=== PATIENT | female | born 1985 | race Caucasian/White ===

== ENCOUNTER 2018-09-17 09:21 | Day surgery (SDC) | payer OTHER, MEDICAID ==
--- NOTE | 2018-09-16 20:26 | PDGENHP ---
History and Physical - Chief Complaint LEFT HIP - History of Present Illness 1. Hx of L hip dislocation without XR confirmation 2. ~~Bilateral TARA, cam type 3. ~~s/p L hip scope Jun 2015, Dr. Mac 4. 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 Jolie's~left~hip pain started July 2013, with~marked~recalled trauma or injury~ (dislocation while in a training exercise when she fell into a oil well - 2 hrs until reduced once in traction/manipulated~-- no XR done at that time), and with~no~previous complaints.~Karindoes not have~a known history of hip dysplasia. After the dislocation event, she had~continued L hip pain and underwent~a L hip scope Jun 2015 with labral repair, cam resection (Dr. Mac). She did well until November 2015 when she got and then had recurrent L hip pain and has had consistent symptoms since. Presentation today is of~anterior~left~hip pain deep inside. ~The hip~does~wake her~at night and~does~click and catch on~her. Sitting~can be uncomfortable~for her, she generally tilts to the R to avoid sitting on her L buttocks.~Karindoes ~report suffering from lower back pain episodes for the last year.~ Karinhas~participated in physical therapy x 1 year~and~has~tried other conservative measures including dry needling, chiropractic treatments, massage therapy, steroid injections x2 (last done 2 months ago, 1 yr interval between the two, both gave her 1 day of 60% pain relief).~She~has not~received sufficient symptomatic improvement. Karinhas~utilized medication for pain management, including meloxicam, gabapentin, marijuana.~Karinhas used meloxicam since October 2017 and uses marijuana daily. Karindenies issues with the right~hip, would not seek care for the minimal symptoms on that side.~~ Karinunderstands that~natasha~has a hip and pelvis problem which should be researched and wishes to get a better understanding of~her~hip status, followed by an establishment of a treatment strategy, hoping~krzysztofwould be able to get back to~her~well being active life. History: Past medical history:~~ Patient~~has a past medical history of Asthma. Relevant familial history:~None which is relevant~ Past surgical history:~ No. Surgery Anesthesia Year Outcome 1 L hip scope General 2016 No complications 2 Pilonidal cyst excision General 2011 No complications Karindenies problematic issues with general anesthesia in the past. I have reviewed, verified and agree with the past medical, surgical, family and social history. Current Medications:~currently has no medications in their medication list. ALLERGIES:~has no allergies on file. Objective: Physical Examination: Karinis 5~feet~5~inches tall and weighs~175~Lbs. Karinis AAO x3; she~is well- nourished, in NAD. Skin is warm and dry. ~Breathing is non-labored. ~CV with RRR by pulse. Abdomen is soft, NTND. Currently,~natasha~walks with a~normal~gait. Trendelenburg sign is~negative~and proprioception~is reduced,~left~sides. She~presents~with no~signs of joint laxity.~Beightons Score:~1 (palms to floor) She~is fit looking. ~~ Lower spine examination is~negative~for sciatic or femoral nerve irritation with positive~SLR &~femoral stretch tests L side. Range of motion of the spine is~normal~for flexion, extension, and rotations,~with~associated pain. Strength, Sensation and pulses are~abnormal - 75% decreased sensation in L 1st web space Ankles and knees exams are~normal~and~no~mal-alignment is evident.~ Natasha~has~right~0.25~cm short leg length discrepancy. Thigh circumference is~symmetric~with no evidence for muscle atrophy~on both~ sides. Hip ROM (degrees): FL ER At 90~hip FL IR At 90~hip FL AB AD EX IR Neutral hip ER Neutral hip R 105 50 15 45 5 0 35(pain) 45(pain) L 105-110 45 35 40(pain) 10 0 40(pain) 25(pain) Specific hip and pelvis tests: Impingement Test LEWIS Roll Add. Longus R + + Negative + L +++ +++ +++ ++ Glut. Med ITB Posterior Imp R Negative 5/5 strength Negative 5/5 strength Negative L +++ 4/5 strength Negative 5/5 strength +++~(anterior) Squeeze test measured~weak Bony Symphysis pubis is~painful~to touch (++)~while concentric activity of the rectus abdominis,~does~produce pain at its insertion. Ilio Psos specific tests are~positive for pain during cycling for~the left hip~ and remarkable for deep popping sound HF has~pain but good strength~the left hip. Lateral~capsule tenderness Bilaterally Greater trochanteric burse is~painful~on the left hip. Piriformis tests: FAIR is~negative,~with no~local signs of neuritis related to sciatic nerve. SIJs examination is~produces pain on~left side~with~normal~LEWIS in relation and local tenderness. Hamstrings tests are~positive~tendinopathy both hips. On a daily basis, the following~areas are significant contributors~Jolie's overall total pain: Imaging: Radiology studies which I~have personally reviewed, analyzed and measured are below: XR: AP of the hip and pelvis: Performed in a~good~technique Coccyx to pubic symphysis distance~2.4~cm. 5~degrees cephal [place]~Lines are preserved. Minimal~Pathological signs are seen in the Symphysis Pubis.~ Minimal~Pathological signs are seen at the Ischial~tuberosity. ~ Specific measurements show:~ 0 deg WB (5 deg corrected) NSA~ LCE Sourcil~Angle Sharp's angle Lat. Cam Lat. Pincer C.Over~sign Head~Coverage % ATDmm R 130 27~(27) 4 (4) 38(40) Neg Neg Neg 76% 18.2 L 128 23~(24) 6~(3) 42(37) Neg Neg 2:00 75% 21.7 Pos. wall sign ISS NAD ~~Dysplasia Comments R Negative + 10.1~mm Negative L + + 8.3~mm Negative Sclerosis Sup. Lat. OA Cysts Joint Space-WBZ Joint Space-Medial R Negative Negative Negative 3.7~mm 3.3~mm L Negative Negative Negative 4.3~mm 4.2~mm X Table lateral: Anterior cam lesion is~seen~on the right hip.~Previous cam resection contour on the left. Alpha Angle: ~ Right~58~degrees Left~45~degrees Impression and plan:~ Jolie~is a~33 y.o.~active female~suffering from~Left~hip pain with a hx of traumatic L hip dislocation, bilateral TARA s/p L hip scope/cam resection in 2016 , lumbar radiculopathy~causing significant disability to~her~and altering~her~ sport and life activities. Physical examination, imaging, and~her~story correspond with the diagnosis mentioned above. I explained that femoroacetabular impingement (TARA) arises due to a bony or soft tissue conflict between the femur (ball) and acetabulum (socket) caused by an abnormality in the shape of the hip joint. Over time, repetitive impingement can result in damage to the labrum and adjacent surface cartilage within the socket, ultimately giving rise to progressive osteoarthritis of the hip. I explained that although a labral tear can be a source of pain, it is rarely the root of the problem and typically occurs secondary to an underlying abnormality in the shape and mechanics of the hip joint. ~ I reviewed conservative treatment options for TARA including activity modification to avoid positions of impingement, physical therapy, non-steroidal anti-inflammatory medications, and various injections (corticosteroid and PRP) aimed at reducing inflammation in the hip joint or/and preventing dynamic impingement. PRP injections may promote healing and reduce symptoms in certain cases but it will not repair chronically damaged tissue. Although these measures may help to buy time and reduce current level of symptoms, they are not a definitive solution to the problem given the underlying abnormality in the shape of the hip joint. Patients who have failed conservative management and continue to experience symptoms are candidates for hip arthroscopy, a minimally invasive surgery that can definitively address the underlying problem. Hip arthroscopy typically includes treating the labrum with either repair or reconstruction of the torn labrum; as well as addressing the underlying abnormalities by restoring the normal shape to the hip joint. ~If the cartilage is damaged a Microfracture~ surgical procedure may also be necessary to help stimulate the growth of fibrocartilage. ~If a patient requires a labral reconstruction or a Microfracture, the initial rehabilitation from the surgery may take longer, but the custodial results are typically favorable. I reviewed the technical aspects of hip arthroscopy including risks, benefits, and expected course of recovery. Jolie understands that hip arthroscopy is a minimally invasive outpatient procedure carried out through small incisions on the outer aspect of the hip joint. During surgery, the labral tear will be identified and either repaired or reconstructed using bone anchors and suture material. Additionally, any excessive bone will be removed with a high-speed kylah to reshape the hip joint and restore normal anatomy. Risks include infection, bleeding, injury to nearby nerves or vessels, stiffness, persistent pain, instability, venous thromboembolic disease, and traction related complications including temporary foot numbness. Rarely, revision surgery may be required to address these problems. Overall recovery takes approximately 4 8 months depending on the extent of damage and degree of repair. In the event that the labral tissue quality is inadequate for successful repair and healing, Jolie understands that a labral reconstruction will be performed. This procedure entails placing a cadaver tissue graft within the hip joint and stabilizing it with bone anchors to build a new labrum. The overall recovery time for labral reconstruction is similar to that of labral repair, although the surgical procedure takes longer to perform. Jolie~will review the info presented. In order to obtain more detailed information regarding the alignment, orientation, and shape of the bony hip and pelvis I will order a CT scan to be performed. The results of the CT scan, including femoral torsion and acetabular version measured values and 3D images, will aid me in deciding on the best treatment strategy and surgical pre-planning. She stated her MRI scans should be sent over (unclear if this will be reports or images). We advised her that we will need to see the actual images and she~ will likely~need to obtain the discs to upload to our system~for~review. We will refer her to Dr. Godfrey for further evaluation of her lumbar spine given the physical exam findings. Jolie~is going to contact us after completing her~imaging studies and being evaluated by Dr. Godfrey. Karinis happy with this plan. I have also supplied~her~with handouts, outlining the expected surgical treatment and rehab involved. I wish~Jolie~all the best, ~~ Jolie Carter MD History Information - Allergies/Home Medication List Allergies/Adverse Reactions: No Known Allergies Allergy (Unverified 09/03/18 16:31) Home Medications: Acetaminophen [Tylenol 325mg (*)] 650 mg PO DAILY PRN 09/03/18 [Last Taken Unknown] Albuterol [Proventil Inhaler HFA (*)] 1 - 2 puffs IH Q4H PRN 09/03/18 [Last Taken Unknown] FLUoxetine [Prozac 20 MG (*)] 60 mg PO DAILY 09/03/18 [Last Taken Unknown] I have personally reviewed and updated: medical history - Social History Smoking Status: Current every day smoker Review of Systems Review of Systems: Physical Exam Physical Exam:
[2018-09-17] MEDS ORDERED: ACETAMINOPHEN 500 MG TAB PO ONE (09:44)
[2018-09-17] MEDS ORDERED: PREGABALIN 150 MG CAP PO ONE (09:44)
[2018-09-17] MEDS ORDERED: ceFAZolin 2 GM/DEXTROSE 100 ML IV ONE (09:44)
[2018-09-17] MEDS ORDERED: LIDOCAINE 1% 2 ML INJ ID PRN (09:45)
[2018-09-17] MEDS ORDERED: LR 1,000 ML IV ONE (09:45)
[2018-09-17] MEDS ORDERED: EPINEPHrine 30 MG/30 ML MDV (0.1 MG/0.1 ML) ONE (10:05)
[2018-09-17] MEDS ORDERED: BUPIVACAINE/EPI 0.25% 30 ML SDV ONE (10:05)
[2018-09-17] MEDS ORDERED: MIDAZOLAM 2 MG/2 ML VIAL IVP ONE (11:41)
[2018-09-17] MEDS ORDERED: ALBUTEROL 3 ML DEYVIAL IH PRN (11:42)
[2018-09-17] MEDS ORDERED: ONDANSETRON 4 MG/2 ML VIAL IVP PRN (11:42)
[2018-09-17] MEDS ORDERED: DEXAMETHASONE 4 MG/ML VIAL IVP PRN (11:42)
[2018-09-17] MEDS ORDERED: NALOXONE HCL 0.4 MG/ML INJ IVP PRN (11:42)
--- NOTE | 2018-09-17 11:43 | PDANEPAE ---
ANE History of Present Illness Left Hip Scope ANE Past Medical History - Cardiovascular History Hx Hypertension: No Hx Arrhythmias: No Hx Chest Pain: No Hx Coronary Artery / Peripheral Vascular Disease: No Hx CHF / Valvular Disease: No Hx Palpitations: No - Pulmonary History Hx COPD: No Hx Asthma/Reactive Airway Disease: Yes Hx Recent Upper Respiratory Infection: No Hx Oxygen in Use at Home: No Hx Sleep Apnea: No Sleep Apnea Screening Result - Last Documented: Negative Pulmonary History Comment: Asthma. - Neurologic History Hx Cerebrovascular Accident: No Hx Seizures: No Hx Dementia: No - Endocrine History Hx Diabetes: No - Renal History Hx Renal Disorders: No - Liver History Hx Hepatic Disorders: No - Neurological & Psychiatric Hx Hx Neurological and Psychiatric Disorders: Yes Neurological / Psychiatric History Comment: Depression. Anxiety - Cancer History Hx Cancer: No - Congenital Disorder History Hx Congenital Disorders: No - GI History Hx Gastrointestinal Disorders: No - Other Health History Other Health History: None. - Chronic Pain History Chronic Pain: Yes - Surgical History Prior Surgeries: [facility] teeth extraction 2006. Pyolonidal cyst removal 2012. L hip arthroscopy 2016 ANE Review of Systems Review of Systems: - Exercise capacity METS (RN): 4 METS ANE Patient History - Allergies Allergies/Adverse Reactions: No Known Allergies Allergy (Unverified 09/03/18 16:31) - Home Medications Home Medications: Acetaminophen [Tylenol 325mg (*)] 650 mg PO DAILY PRN 09/03/18 [Last Taken 09/10] Albuterol [Proventil Inhaler HFA (*)] 1 - 2 puffs IH Q4H PRN 09/03/18 [Last Taken 09/03/18] FLUoxetine [Prozac 20 MG (*)] 60 mg PO DAILY 09/03/18 [Last Taken 09/17/18 06:30 ] - NPO status NPO Since - Liquids (Date): 09/17/18 NPO Since - Liquids (Time): 06:30 NPO Since - Solids (Date): 09/16/18 NPO Since - Solids (Time): 18:00 - Smoking Hx Smoking Status: Current every day smoker - Family Anes Hx Family Hx Anesthesia Complications: None. ANE Labs/Vital Signs - Vital Signs Blood Pressure: 112/62 Heart Rate: 65 Respiratory Rate: 18 O2 Sat (%): 95 Height: 165.1 cm Weight: 73.028 kg ANE Physical Exam - Airway Neck exam: FROM Mallampati Score: Class 2 Mouth exam: normal dental/mouth exam - Pulmonary Pulmonary: clear to auscultation - Cardiovascular Cardiovascular: regular rate and rhythym - ASA Status ASA Status: II ANE Anesthesia Plan Anesthesia Plan: general endotracheal anesthesia
[2018-09-17] MEDS ORDERED: MIDAZOLAM 2 MG/2 ML VIAL ONE (11:46)
[2018-09-17] MEDS ORDERED: HYDROmorphONE/DILAUDID 2 MG/ML INJ ONE (11:51)
[2018-09-17] MEDS ORDERED: PROPOFOL 200 MG/20 ML VIAL ONE (11:52)
[2018-09-17] MEDS ORDERED: ROCURONIUM 50 MG/5 ML VIAL ONE (12:13)
[2018-09-17] MEDS ORDERED: ePHEDrine SULFATE 25 MG/5 ML SYR ONE (12:13)
[2018-09-17] MEDS ORDERED: DEXAMETHASONE 4 MG/ML VIAL ONE ×2 (12:36)
[2018-09-17] MEDS ORDERED: ONDANSETRON 4 MG/2 ML VIAL ONE ×2 (12:36→14:10)
--- NOTE | 2018-09-17 14:08 | POSTANESTH ---
Post Anesthetic Evaluation Cardiovascular Status: Normal, Stable Respiratory Status: Normal, Stable Level of Consciousness/Mental Status: Can Participate in Eval, Mildly Sleepy, Arousable Pain Control: Adequate, Prn Tx Ordered Nausea/Vomiting Control: Adequate, Prn Tx Ordered Complications Possibly Related to Anesthesia: None Noted
[2018-09-17] MEDS ORDERED: fentaNYL 100 MCG/2 ML INJ ONE ×2 (14:10→15:10)
[2018-09-17] MEDS ORDERED: HYDROmorphONE/DILAUDID 1 MG/ML INJ ONE (14:10)
[2018-09-17] MEDS: fentaNYL 100 MCG/2 ML INJ IVP PRN ×3 (14:13→15:14)
[2018-09-17] MEDS: HYDROmorphONE/DILAUDID 1 MG/ML INJ IVP PRN ×2 (14:16→14:55)
[2018-09-17] MEDS ORDERED: oxyCODONE IR 5 MG TAB ONE ×2 (15:10→15:52)
[2018-09-17] MEDS: oxyCODONE IR 5 MG TAB PO PRN ×2 (15:11→15:53)
[2018-09-17 16:26] VITALS: BP 102/57
== END 2018-09-17 17:32 | disposition home or self-care (01) ==
LOC: FSGY 09:21
PROVIDERS: ATTEND Orthopaedic Surgery Sports Medicine
DX: M24.152 Other articular cartilage disorders, left hip (principal); M76.892 Other specified enthesopathies of left lower limb, excluding foot; M94.252 Chondromalacia, left hip; Q65.9 Congenital deformity of hip, unspecified; J45.909 Unspecified asthma, uncomplicated
CPT/HCPCS: C1713; J0171; J0690; J1100; J1170; J2250; J2405; J2704; J3010

== ENCOUNTER 2018-09-24 05:47 | Inpatient (IN) | payer OTHER, MEDICAID ==
--- NOTE | 2018-09-23 20:40 | PDGENHP ---
History and Physical - Chief Complaint LEFT HIP PAIN - History of Present Illness 1. Hx of L hip dislocation without XR confirmation 2. ~~Bilateral TARA, cam type 3. ~~s/p L hip scope Jun 2015, Dr. Mac 4. 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 Jolie's~left~hip pain started July 2013, with~marked~recalled trauma or injury~ (dislocation while in a training exercise when she fell into a oil well - 2 hrs until reduced once in traction/manipulated~-- no XR done at that time), and with~no~previous complaints.~Karindoes not have~a known history of hip dysplasia. After the dislocation event, she had~continued L hip pain and underwent~a L hip scope Jun 2015 with labral repair, cam resection (Dr. Mac). She did well until November 2015 when she got and then had recurrent L hip pain and has had consistent symptoms since. Presentation today is of~anterior~left~hip pain deep inside. ~The hip~does~wake her~at night and~does~click and catch on~her. Sitting~can be uncomfortable~for her, she generally tilts to the R to avoid sitting on her L buttocks.~Karindoes ~report suffering from lower back pain episodes for the last year.~ Karinhas~participated in physical therapy x 1 year~and~has~tried other conservative measures including dry needling, chiropractic treatments, massage therapy, steroid injections x2 (last done 2 months ago, 1 yr interval between the two, both gave her 1 day of 60% pain relief).~She~has not~received sufficient symptomatic improvement. Karinhas~utilized medication for pain management, including meloxicam, gabapentin, marijuana.~Karinhas used meloxicam since October 2017 and uses marijuana daily. Karindenies issues with the right~hip, would not seek care for the minimal symptoms on that side.~~ Karinunderstands that~natasha~has a hip and pelvis problem which should be researched and wishes to get a better understanding of~her~hip status, followed by an establishment of a treatment strategy, hoping~krzysztofwould be able to get back to~her~well being active life. History: Past medical history:~~ Patient~~has a past medical history of Asthma. Relevant familial history:~None which is relevant~ Past surgical history:~ No. Surgery Anesthesia Year Outcome 1 L hip scope General 2016 No complications 2 Pilonidal cyst excision General 2011 No complications Karindenies problematic issues with general anesthesia in the past. I have reviewed, verified and agree with the past medical, surgical, family and social history. Current Medications:~currently has no medications in their medication list. ALLERGIES:~has no allergies on file. Objective: Physical Examination: Karinis 5~feet~5~inches tall and weighs~175~Lbs. Karinis AAO x3; she~is well- nourished, in NAD. Skin is warm and dry. ~Breathing is non-labored. ~CV with RRR by pulse. Abdomen is soft, NTND. Currently,~natasha~walks with a~normal~gait. Trendelenburg sign is~negative~and proprioception~is reduced,~left~sides. She~presents~with no~signs of joint laxity.~Beightons Score:~1 (palms to floor) She~is fit looking. ~~ Lower spine examination is~negative~for sciatic or femoral nerve irritation with positive~SLR &~femoral stretch tests L side. Range of motion of the spine is~normal~for flexion, extension, and rotations,~with~associated pain. Strength, Sensation and pulses are~abnormal - 75% decreased sensation in L 1st web space Ankles and knees exams are~normal~and~no~mal-alignment is evident.~ Natasha~has~right~0.25~cm short leg length discrepancy. Thigh circumference is~symmetric~with no evidence for muscle atrophy~on both~ sides. Hip ROM (degrees): FL ER At 90~hip FL IR At 90~hip FL AB AD EX IR Neutral hip ER Neutral hip R 105 50 15 45 5 0 35(pain) 45(pain) L 105-110 45 35 40(pain) 10 0 40(pain) 25(pain) Specific hip and pelvis tests: Impingement Test LEWIS Roll Add. Longus R + + Negative + L +++ +++ +++ ++ Glut. Med ITB Posterior Imp R Negative 5/5 strength Negative 5/5 strength Negative L +++ 4/5 strength Negative 5/5 strength +++~(anterior) Squeeze test measured~weak Bony Symphysis pubis is~painful~to touch (++)~while concentric activity of the rectus abdominis,~does~produce pain at its insertion. Ilio Psos specific tests are~positive for pain during cycling for~the left hip~ and remarkable for deep popping sound HF has~pain but good strength~the left hip. Lateral~capsule tenderness Bilaterally Greater trochanteric burse is~painful~on the left hip. Piriformis tests: FAIR is~negative,~with no~local signs of neuritis related to sciatic nerve. SIJs examination is~produces pain on~left side~with~normal~LEWIS in relation and local tenderness. Hamstrings tests are~positive~tendinopathy both hips. On a daily basis, the following~areas are significant contributors~Jolie's overall total pain: Imaging: Radiology studies which I~have personally reviewed, analyzed and measured are below: XR: AP of the hip and pelvis: Performed in a~good~technique Coccyx to pubic symphysis distance~2.4~cm. 5~degrees cephal [place]~Lines are preserved. Minimal~Pathological signs are seen in the Symphysis Pubis.~ Minimal~Pathological signs are seen at the Ischial~tuberosity. ~ Specific measurements show:~ 0 deg WB (5 deg corrected) NSA~ LCE Sourcil~Angle Sharp's angle Lat. Cam Lat. Pincer C.Over~sign Head~Coverage % ATDmm R 130 27~(27) 4 (4) 38(40) Neg Neg Neg 76% 18.2 L 128 23~(24) 6~(3) 42(37) Neg Neg 2:00 75% 21.7 Pos. wall sign ISS NAD ~~Dysplasia Comments R Negative + 10.1~mm Negative L + + 8.3~mm Negative Sclerosis Sup. Lat. OA Cysts Joint Space-WBZ Joint Space-Medial R Negative Negative Negative 3.7~mm 3.3~mm L Negative Negative Negative 4.3~mm 4.2~mm X Table lateral: Anterior cam lesion is~seen~on the right hip.~Previous cam resection contour on the left. Alpha Angle: ~ Right~58~degrees Left~45~degrees Impression and plan:~ Jolie~is a~32 y.o.~active female~suffering from~Left~hip pain with a hx of traumatic L hip dislocation, bilateral TARA s/p L hip scope/cam resection in 2016 , lumbar radiculopathy~causing significant disability to~her~and altering~her~ sport and life activities. Physical examination, imaging, and~her~story correspond with the diagnosis mentioned above. I explained that femoroacetabular impingement (TARA) arises due to a bony or soft tissue conflict between the femur (ball) and acetabulum (socket) caused by an abnormality in the shape of the hip joint. Over time, repetitive impingement can result in damage to the labrum and adjacent surface cartilage within the socket, ultimately giving rise to progressive osteoarthritis of the hip. I explained that although a labral tear can be a source of pain, it is rarely the root of the problem and typically occurs secondary to an underlying abnormality in the shape and mechanics of the hip joint. ~ I reviewed conservative treatment options for TARA including activity modification to avoid positions of impingement, physical therapy, non-steroidal anti-inflammatory medications, and various injections (corticosteroid and PRP) aimed at reducing inflammation in the hip joint or/and preventing dynamic impingement. PRP injections may promote healing and reduce symptoms in certain cases but it will not repair chronically damaged tissue. Although these measures may help to buy time and reduce current level of symptoms, they are not a definitive solution to the problem given the underlying abnormality in the shape of the hip joint. Patients who have failed conservative management and continue to experience symptoms are candidates for hip arthroscopy, a minimally invasive surgery that can definitively address the underlying problem. Hip arthroscopy typically includes treating the labrum with either repair or reconstruction of the torn labrum; as well as addressing the underlying abnormalities by restoring the normal shape to the hip joint. ~If the cartilage is damaged a Microfracture~ surgical procedure may also be necessary to help stimulate the growth of fibrocartilage. ~If a patient requires a labral reconstruction or a Microfracture, the initial rehabilitation from the surgery may take longer, but the computer terminal operator results are typically favorable. I reviewed the technical aspects of hip arthroscopy including risks, benefits, and expected course of recovery. Jolie understands that hip arthroscopy is a minimally invasive outpatient procedure carried out through small incisions on the outer aspect of the hip joint. During surgery, the labral tear will be identified and either repaired or reconstructed using bone anchors and suture material. Additionally, any excessive bone will be removed with a high-speed kylah to reshape the hip joint and restore normal anatomy. Risks include infection, bleeding, injury to nearby nerves or vessels, stiffness, persistent pain, instability, venous thromboembolic disease, and traction related complications including temporary foot numbness. Rarely, revision surgery may be required to address these problems. Overall recovery takes approximately 4 8 months depending on the extent of damage and degree of repair. In the event that the labral tissue quality is inadequate for successful repair and healing, Jolie understands that a labral reconstruction will be performed. This procedure entails placing a cadaver tissue graft within the hip joint and stabilizing it with bone anchors to build a new labrum. The overall recovery time for labral reconstruction is similar to that of labral repair, although the surgical procedure takes longer to perform. Jolie~will review the info presented. In order to obtain more detailed information regarding the alignment, orientation, and shape of the bony hip and pelvis I will order a CT scan to be performed. The results of the CT scan, including femoral torsion and acetabular version measured values and 3D images, will aid me in deciding on the best treatment strategy and surgical pre-planning. She stated her MRI scans should be sent over (unclear if this will be reports or images). We advised her that we will need to see the actual images and she~ will likely~need to obtain the discs to upload to our system~for~review. We will refer her to Dr. Godfrey for further evaluation of her lumbar spine given the physical exam findings. Jolie~is going to contact us after completing her~imaging studies and being evaluated by Dr. Godfrey. Krainis happy with this plan. I have also supplied~her~with handouts, outlining the expected surgical treatment and rehab involved. I wish~Jolie~all the best, ~~ Jolie Carter MD History Information - Allergies/Home Medication List Allergies/Adverse Reactions: No Known Allergies Allergy (Unverified 09/19/18 14:21) Home Medications: Acetaminophen [Tylenol 325mg (*)] 09/03/18 [Last Taken 09/10/18] Albuterol [Proventil Inhaler HFA (*)] 09/03/18 [Last Taken 09/03/18] FLUoxetine [Prozac 20 MG (*)] 09/03/18 [Last Taken 09/17/18 06:30] Diazepam 09/19/18 [Last Taken Unknown] Naproxen 09/19/18 [Last Taken Unknown] Oxycodone-Acetaminophen 5-325 09/19/18 [Last Taken Unknown] Zofran 09/19/18 [Last Taken Unknown] I have personally reviewed and updated: medical history - Social History Smoking Status: Former smoker Review of Systems Review of Systems: Physical Exam Physical Exam:
[2018-09-24] MEDS ORDERED: ceFAZolin 2 GM/DEXTROSE 100 ML IV ONE (06:07)
[2018-09-24] MEDS ORDERED: SCOPOLAMINE HYDROBROMIDE 1 MG/3 DAYS PATCH TD ONE (06:07)
[2018-09-24] MEDS ORDERED: TRANEXAMIC ACID 1,000 MG in NS 100 ML IV ONE (06:07)
[2018-09-24] MEDS ORDERED: ACETAMINOPHEN 500 MG TAB PO ONE (06:07)
[2018-09-24] MEDS ORDERED: PREGABALIN 150 MG CAP PO ONE (06:07)
[2018-09-24] MEDS ORDERED: LR 1,000 ML IV ONE (06:11)
[2018-09-24] MEDS ORDERED: CITRATE DEXTROSE SOLN 500 ML BAG ONE (06:43)
[2018-09-24] MEDS ORDERED: MIDAZOLAM 2 MG/2 ML VIAL IVP ONE (07:00)
--- NOTE | 2018-09-24 07:00 | PDANEPAE ---
ANE History of Present Illness dysplasia s/f ELA ANE Past Medical History - Cardiovascular History Hx Hypertension: No Hx Arrhythmias: No Hx Chest Pain: No Hx Coronary Artery / Peripheral Vascular Disease: No Hx CHF / Valvular Disease: No Hx Palpitations: No - Pulmonary History Hx COPD: No Hx Asthma/Reactive Airway Disease: Yes Hx Recent Upper Respiratory Infection: No Hx Oxygen in Use at Home: No Hx Sleep Apnea: No Sleep Apnea Screening Result - Last Documented: Negative Pulmonary History Comment: cold triggers asthma - Neurologic History Hx Cerebrovascular Accident: No Hx Seizures: No Hx Dementia: No - Endocrine History Hx Diabetes: No - Renal History Hx Renal Disorders: No - Liver History Hx Hepatic Disorders: No - Neurological & Psychiatric Hx Hx Neurological and Psychiatric Disorders: Yes Neurological / Psychiatric History Comment: depression,anxiety - Cancer History Hx Cancer: No - Congenital Disorder History Hx Congenital Disorders: Yes Congenital History Comment: hip dysplasia - GI History Hx Gastrointestinal Disorders: No - Other Health History Other Health History: none - Chronic Pain History Chronic Pain: No - Surgical History Prior Surgeries: left hip scope with femoroplasty and labral repair ANE Review of Systems Review of Systems: - Exercise capacity METS (RN): 4 METS ANE Patient History - Allergies Allergies/Adverse Reactions: No Known Allergies Allergy (Unverified 09/19/18 14:21) - Home Medications Home medications: home medication list seen and reviewed Home Medications: Acetaminophen [Tylenol 325mg (*)] 09/03/18 [Last Taken 09/19/18] Albuterol [Proventil Inhaler HFA (*)] 09/03/18 [Last Taken 09/03/18] FLUoxetine [Prozac 20 MG (*)] 09/03/18 [Last Taken 09/24/18] Diazepam 09/19/18 [Last Taken 09/21/18] Naproxen 09/19/18 [Last Taken 09/21/18] Oxycodone-Acetaminophen 5-325 09/19/18 [Last Taken 09/21/18] Zofran 09/19/18 [Last Taken 09/20/18] - NPO status NPO Status: no food or drink >8 hours NPO Since - Liquids (Date): 09/24/18 NPO Since - Liquids (Time): 05:00 NPO Since - Solids (Date): 09/23/18 NPO Since - Solids (Time): 17:00 - Anes Hx Anes Hx: no prior problems - Smoking Hx Smoking Status: Former smoker - Alcohol Use Alcohol Use: None - Family Anes Hx Family Anes Hx: none Family Hx Anesthesia Complications: none ANE Labs/Vital Signs - Labs - CBC WBC: pending - Vital Signs Blood Pressure: 110/68 Heart Rate: 88 Respiratory Rate: 20 O2 Sat (%): 96 Height: 165.1 cm Weight: 72.575 kg ANE Physical Exam - Airway Neck exam: FROM Mallampati Score: Class 2 Mouth exam: normal dental/mouth exam - Pulmonary Pulmonary: no respiratory distress - Cardiovascular Cardiovascular: regular rate and rhythym - ASA Status ASA Status: II ANE Anesthesia Plan Anesthesia Plan: general endotracheal anesthesia, spinal (MSO4)
[2018-09-24] MEDS ORDERED: BUPIVACAINE 0.5% 30 ML SDV ONE (07:22)
[2018-09-24] MEDS ORDERED: DEXAMETHASONE 4 MG/ML VIAL ONE ×2 (07:26)
[2018-09-24] MEDS ORDERED: morphINE PF 5 MG/10 ML INJ ONE (07:26)
[2018-09-24] MEDS ORDERED: fentaNYL 100 MCG/2 ML INJ ONE ×3 (07:26→14:14)
[2018-09-24] MEDS ORDERED: ROCURONIUM 50 MG/5 ML VIAL ONE (07:26)
[2018-09-24] MEDS ORDERED: PROPOFOL/EMULSION 500 MG/50 ML BOTTLE IV ONE ×2 (07:26→09:22)
[2018-09-24] MEDS ORDERED: LIDOCAINE 2% 100 MG/5 ML SYR ONE (07:27)
[2018-09-24] MEDS ORDERED: ONDANSETRON 4 MG/2 ML VIAL ONE (07:27)
[2018-09-24] MEDS ORDERED: LIDOCAINE HCL 160 MG/4 ML LTA KIT TP ONE (07:27)
[2018-09-24] MEDS ORDERED: ePHEDrine SULFATE 25 MG/5 ML SYR ONE (07:52)
[2018-09-24] MEDS ORDERED: ceFAZolin 1 GM VIAL ONE ×2 (08:20)
[2018-09-24] MEDS ORDERED: PHENYLEPHRINE HCL 100 MCG/ML SYR ONE ×3 (08:26→10:46)
[2018-09-24] MEDS ORDERED: TRANEXAMIC ACID 1,000 MG/10 ML VIAL ONE (10:27)
[2018-09-24] MEDS ORDERED: VASOPRESSIN 20 UNIT/ML VIAL ONE (11:26)
[2018-09-24] MEDS ORDERED: PROPOFOL 200 MG/20 ML VIAL ONE (11:43)
[2018-09-24] MEDS: fentaNYL 100 MCG/2 ML INJ IVP PRN ×4 (12:49→15:03)
[2018-09-24] MEDS ORDERED: ONDANSETRON 4 MG/2 ML VIAL IVP PRN ×3 (12:58→13:01)
[2018-09-24] MEDS ORDERED: ACETAMINOPHEN 325 MG TAB PO PRN (12:58)
[2018-09-24] MEDS ORDERED: MAGNESIUM HYDROXIDE 30 ML UDCUP PO PRN (12:58)
[2018-09-24] MEDS ORDERED: LACTULOSE 20 GM/30 ML UDCUP PO PRN (12:58)
[2018-09-24] MEDS ORDERED: ONDANSETRON DISINTEGRATING 4 MG TAB PO PRN (12:58)
[2018-09-24] MEDS ORDERED: BISACODYL 10 MG SUPP PR PRN (12:58)
[2018-09-24] MEDS ORDERED: oxyCODONE IR 5 MG TAB PO PRN (13:01)
[2018-09-24] MEDS ORDERED: MEPERIDINE 25 MG/0.5 ML AMP IVP PRN (13:01)
[2018-09-24] MEDS ORDERED: ALBUTEROL 3 ML DEYVIAL IH PRN (13:01)
[2018-09-24] MEDS ORDERED: PHENYLEPHRINE HCL 100 MCG/ML SYR IVP PRN (13:01)
[2018-09-24] MEDS ORDERED: LR 500 ML IV PRN (13:01)
[2018-09-24] MEDS ORDERED: METOCLOPRAMIDE 10 MG/2 ML VIAL IVP PRN ×2 (13:01)
[2018-09-24] MEDS ORDERED: PROMETHAZINE HCL 25 MG/ML INJ IVP PRN (13:01)
[2018-09-24] MEDS ORDERED: NALOXONE HCL 0.4 MG/ML INJ IVP PRN ×3 (13:01→13:02)
[2018-09-24] MEDS ORDERED: DEXAMETHASONE 4 MG/ML VIAL IVP PRN (13:01)
[2018-09-24] MEDS ORDERED: LABETALOL HCL 5 MG/ML 20 ML MDV IVP PRN (13:01)
[2018-09-24] MEDS ORDERED: HYDROCODONE/APAP 5/325 TAB PO PRN (13:01)
[2018-09-24] MEDS ORDERED: oxyCODONE IR 15 MG TAB PO PRN (13:03)
[2018-09-24] MEDS: oxyCODONE IR 5 MG TAB PO SCH ×3 (15:25→21:55)
[2018-09-24] MEDS: NAPROXEN SODIUM 220 MG TAB PO SCH ×2 (15:26→21:55)
[2018-09-24] MEDS: HYDROmorphONE/DILAUDID 6 MG/30 ML PCA IV PRN (15:31)
[2018-09-24] MEDS: NS 1,000 ML IV SCH (15:41)
[2018-09-24] MEDS: diphenhydrAMINE 25 MG CAP PO PRN ×2 (15:47→21:57)
--- NOTE | 2018-09-24 15:54 | PDMN ---
Medical Necessity Medical necessity: MCG GRG musculoskeletal sgy OP: Poppy MAHMOOD
[2018-09-24] MEDS ORDERED: ALBUTEROL 60 PUFFS/8 GM MDI IH PRN (17:35)
[2018-09-24] MEDS: SENNOSIDES/DOCUSATE SODIUM TAB PO SCH (21:56)
--- NOTE | 2018-09-24 23:51 | SUROPNOTE ---
FRANCISCO Operative Report - Surgery Surgery was performed at [facility] on~09/24/18~ Diagnosis:~Left 1. Hip Acetabular Dysplasia ~ Operation: Left~Antonette Acetabular Osteotomy (ELA) Surgeon: Quinton Parker MD Abrasive Mixer Helper:~~Kirill ECHEVERRIA Anesthetic: General + spinal Procedure: General anesthetic. Antibiotics given. Cell saver in use. Fluoroscopy. Phase 1: Position lateral, diagonal skin incision between ischial tuberosity and greater trochanter as for posterior hip approach. Blunt split of glut max fibers. Identification of fat pad overlying sciatic nerve. Exposure of sciatic nerve under fat pad, gently retracting it away-medially to ischial tuberosity. Exposure of subcotoloid fossa proximal to short rotators. UsingPrecision saw, osteotomy of subcotoloid honfo53-31 mm short of (lateral to) thesciatic notch. Closure of lateral cut. Patient is turned supine. Phase 2: Skin incision just distal to ASIS. Using diathermy the iliac spine was exposed and inguinal ligament + Sartorious were retracted medially, taking the LFCN with them, protecting it. Inner ilium was dissected from iliacus muscle bluntly , with a cob and swab. Dissection continued towards lateral superior ramus pubis. Using fluoroscopy an osteotomy of lateral superior ramus, just medial to tear drop, was performed with~curved fish mouth osteotome. Phase 3: Osteotomy lines of the ilium were marked with diathermy as pre planned according to XR/CT and expected correction of acatabulum. 2 Shanz screws were drilled into central acetabular fragment, corresponding with planned correction angles, in order to mobilize central acetabular fragment after osteotomy is complete. ~Iliac osteotomy was performed with reciprocating saw and the main acetabular fragment was moved to realign weight bearing position. After confirmation of correction using fluoroscopy in AP and false profile planes, the fragment was fixed with 2 -~5.5mm~~full threaded~screws~and 1 -~4mm~~full threaded~screw. Inguinal ligament and Sartorious were attached back to ASIS through drill holes. Incision was closed according to soft tissue layers. Skin was closed with~subdermal Monocryl. Final fluoro shots were obtained to confirm position/correction. After surgery~Jolie~moved both lower limbs and had no NV motor compromise. Specimen - none Bleeding -~550ml Complication - none Evaluation under anesthesia: IR at 90 degrees hip flexion prior to ELA was~40~degrees and after ELA was 20~ degrees. Bleeding:~550~cc into cell-saver, 270~of blood products were returned to patient. Post op instructions: 1.~toe touch~weight bearing crutches for 6 weeks 2. Continuous SCD 3. Aspirin 81 mg X1 day starting POD1 4. Avoid hip flexion past 90 and hip External rotation. 5. PT according to my recommendations at follow up visit Kind regards, Dr. Quinton Parker .
[2018-09-25] MEDS: oxyCODONE IR 5 MG TAB PO SCH ×7 (01:59→21:50)
[2018-09-25] MEDS: NS 1,000 ML IV SCH ×2 (02:00→12:56)
[2018-09-25] MEDS: HYDROmorphONE/DILAUDID 6 MG/30 ML PCA IV PRN ×3 (04:51→18:32)
[2018-09-25] MEDS: diphenhydrAMINE 25 MG CAP PO PRN ×3 (04:51→18:40)
[2018-09-25] MEDS: DIAZEPAM 2 MG TAB PO PRN ×3 (06:04→18:25)
[2018-09-25] MEDS: NAPROXEN SODIUM 220 MG TAB PO SCH ×3 (09:38→21:49)
[2018-09-25] MEDS: FLUoxetine 20 MG CAP PO SCH (09:39)
[2018-09-25] MEDS: PANTOPRAZOLE SODIUM 40 MG TAB PO SCH (09:40)
[2018-09-25] MEDS: SENNOSIDES/DOCUSATE SODIUM TAB PO SCH ×2 (09:40→21:50)
[2018-09-25] MEDS: oxyCODONE IR 5 MG TAB PO PRN (11:00)
[2018-09-25] MEDS: POLYETHYLENE GLYCOL 3350 17 GM PKT PO PRN (11:11)
--- NOTE | 2018-09-25 13:59 | SOAPPROG ---
SOAP Progress Note Assessment/Plan: Assessment: 1 day post op Left Periacetabular Osteotomy Plan: Transition to orals analgesia SCDs. 81mg aspirin daily for DVT prophylaxis Up with PT/OT Pelvis x-ray on POD#3 09/25/18 13:56 Subjective: Jolie was seen this morning. She was just feeling the effects of the spinal wear off when I saw her, E COMMERCE PROJECT MANAGER and Oxycodone were working well. She hadn't been up out of bed yet. She denied cp, sob or nausea. Objective: Vital Signs Temp Pulse Resp BP Pulse Ox 36.8 C 69 16 102/63 95 09/25/18 12:00 09/25/18 12:00 09/25/18 12:00 09/25/18 12:00 09/25/18 12:00 Laboratory Results 09/25/18 04:27 09/25/18 04:27 09/24/18 09/25/18 09/26/18 05:59 05:59 05:59 Intake Total 5722 1000 Output Total 5180 1018 Balance 542 -18 well appearing in NAD Left Hip: dressings clean dry intact some ecchymosis and edema some thigh numbness NVI distally full ROM of foot and ankle ICD10 Worksheet Patient Problems: Problems Problem Status Onset Post-operative pain Acute - ICD10 Problem Qualifiers (1) Post-operative pain
--- NOTE | 2018-09-25 15:31 | ASMTCMCOM ---
CM Note CM Note Notes: Pt post op ELA for hip dysplasia, resides with spouse and child. PT rec home/outpatient, OT rec home/HHC/24 hr supervision. CM to follow pt progress. Anticipate pt will follow rec for outpatient PT. D/c plan of care: Likely independent Date Signed: 09/25/2018 03:30 PM Electronically Signed By:ODESSA Vaughan
[2018-09-25] MEDS: ACETAMINOPHEN 325 MG TAB PO PRN (18:37)
--- NOTE | 2018-09-25 18:38 | PDPAINCON ---
Pain Management Consultation Patient referred by : Jenna Bajwa - Subjective Pain is: under control Activity: out of bed with assistance - Objective Technique: spinal opioid Sensory and motor exam: block has resolved, no apparent ill effects Vital signs: stable - Assessment/Plan Assessment/Plan: other (Pt doing well s/p ITN. No backache, no headache. )
--- NOTE | 2018-09-25 18:43 | GCON ---
[f rep st] CONSULTATION DATE OF CONSULTATION: 09/25/2018 REASON FOR CONSULTATION: Medical evaluation. HISTORY OF PRESENT ILLNESS: The patient is a 33-year-old female who underwent a scheduled periacetab ular osteotomy performed by Dr. Parker on 09/24/2018. The patient has complaints of some mild pain a t this time. She has no complaints of nausea, vomiting, or diarrhea, no complaints of fever, sweats, night chills, dyspnea, shortness of breath, or chest pain. REVIEW OF SYSTEMS: Comprehensive 10-point review of systems is negative other than noted in the HPI. PAST MEDICAL HISTORY: 1. Hip dislocation. 2. Asthma. PAST SURGICAL HISTORY: Left hip scope. ALLERGIES: None. CURRENT MEDICATIONS: None. FAMILY HISTORY: No relevant family history. PHYSICAL EXAM: GENERAL: The patient is alert. VITAL SIGNS: Afebrile at 36.6, pulse 84, respirator y rate 16. Blood pressure is 96/64. She is saturating 94% on room air. HEENT: Normocephalic, atra umatic. Mucosal membranes are moist. Pupils equal, round, reactive to light. NECK: Supple. LUNGS : Clear to auscultation bilaterally. No rhonchi or wheezes appreciated. CARDIOVASCULAR: Regular r ate and rhythm. No gallop or murmur noted. GASTROINTESTINAL/ABDOMEN: Bowel sounds are positive. S oft and nontender. There is no guarding or rigidity appreciated. EXTREMITIES: Within normal limits . There is no clubbing or cyanosis noted. There is pain with range of motion in the left lower extr emity. SKIN: Without rashes or lesions. NEUROLOGICAL: The patient is focally intact. LABORATORY EVALUATION: White count is 10.75. Hemoglobin is 10.8, with hematocrit of 31.8. Metaboli c panel is essentially benign. Calcium is 7.7. ASSESSMENT AND PLAN: Patient is a 33-year-old female who underwent a scheduled surgical intervention performed by Dr. Parker. I am consulting on the patient during this hospitalization to assist in h er medical management. Her pain is well controlled at this time. She is receiving adequate pain med ication, and her laboratory values are within normal limits. She does suffer from some acute anemia that is to be expected in the setting of a postsurgical event. As for the patient's asthma, she has no signs of acute exacerbation at this time. We will continue to follow during this patient's hospit alization, and managing her care. Thank you for the consultation. /[id number]/MODL
[2018-09-26] MEDS: oxyCODONE IR 5 MG TAB PO SCH ×6 (02:05→21:39)
[2018-09-26] MEDS: HYDROmorphONE/DILAUDID 6 MG/30 ML PCA IV PRN ×2 (04:19→15:41)
[2018-09-26] MEDS: DIAZEPAM 2 MG TAB PO PRN ×3 (04:19→21:39)
[2018-09-26] MEDS: diphenhydrAMINE 25 MG CAP PO PRN (06:21)
[2018-09-26] MEDS: POLYETHYLENE GLYCOL 3350 17 GM PKT PO PRN (08:48)
[2018-09-26] MEDS: PANTOPRAZOLE SODIUM 40 MG TAB PO SCH (08:49)
[2018-09-26] MEDS: FLUoxetine 20 MG CAP PO SCH (08:49)
[2018-09-26] MEDS: NAPROXEN SODIUM 220 MG TAB PO SCH ×3 (08:49→21:39)
[2018-09-26] MEDS: SENNOSIDES/DOCUSATE SODIUM TAB PO SCH ×2 (08:49→21:39)
[2018-09-26] MEDS: ACETAMINOPHEN 325 MG TAB PO PRN ×2 (08:50→17:48)
[2018-09-26] MEDS: NS 1,000 ML IV SCH (09:52)
--- NOTE | 2018-09-26 12:17 | POSTANESTH ---
Post Anesthetic Evaluation Cardiovascular Status: Normal, Stable Respiratory Status: Normal, Stable Level of Consciousness/Mental Status: Can Participate in Eval Pain Control: Adequate, Prn Tx Ordered Nausea/Vomiting Control: Adequate, Prn Tx Ordered Complications Possibly Related to Anesthesia: None Noted
[2018-09-26] MEDS: ASPIRIN EC 81 MG TAB PO SCH (12:55)
--- NOTE | 2018-09-26 16:23 | SOAPPROG ---
SOAP Progress Note Assessment/Plan: Assessment: 2nd day post op Left Periacetabular Osteotomy Plan: Transition to oral analgesia SCDs. 81mg aspirin daily for DVT prophylaxis Up with PT/OT Pelvis x-ray on POD#3 09/25/18 13:56 09/26/18 16:18 Subjective: Jolie had Shaver taken out today. Her pain has been well managed with DISH CARRIER and Oxycodone and has been up with PT/OT. She denies any cp, sob or nausea. Objective: Vital Signs Temp Pulse Resp BP Pulse Ox 37.4 C 88 19 113/67 100 09/26/18 15:38 09/26/18 15:38 09/26/18 15:38 09/26/18 15:38 09/26/18 15:38 Laboratory Results 09/25/18 04:27 09/25/18 04:27 09/25/18 09/26/18 09/27/18 05:59 05:59 05:59 Intake Total 5722 5250 699 Output Total 1584 4973 1999 Balance 542 282 -1301 Well appearing in NAD Left Hip: dressings clean dry intact some ecchymosis and edema thigh numbness NVI distally full ROM of foot and ankle ICD10 Worksheet Patient Problems: Problems Problem Status Onset Post-operative pain Acute - ICD10 Problem Qualifiers (1) Post-operative pain
[2018-09-27] MEDS: oxyCODONE IR 5 MG TAB PO SCH ×6 (02:15→22:13)
[2018-09-27] MEDS: ACETAMINOPHEN 325 MG TAB PO PRN ×2 (07:25→12:13)
[2018-09-27] MEDS: DIAZEPAM 2 MG TAB PO PRN ×2 (07:26→20:26)
[2018-09-27] MEDS ORDERED: PROMETHAZINE HCL 25 MG/ML INJ IVP PRN (08:50)
[2018-09-27] MEDS ORDERED: PROMETHAZINE HCL 25 MG/ML INJ IVP ONE (08:52)
[2018-09-27] MEDS: oxyCODONE IR 5 MG TAB PO PRN ×3 (12:12→23:42)
[2018-09-27] MEDS: FLUoxetine 20 MG CAP PO SCH (12:13)
[2018-09-27] MEDS: SENNOSIDES/DOCUSATE SODIUM TAB PO SCH ×2 (12:13→20:26)
[2018-09-27] MEDS: ASPIRIN EC 81 MG TAB PO SCH (12:13)
[2018-09-27] MEDS: NAPROXEN SODIUM 220 MG TAB PO SCH ×3 (12:14→22:13)
[2018-09-27] MEDS: PANTOPRAZOLE SODIUM 40 MG TAB PO SCH (12:16)
[2018-09-28] MEDS: oxyCODONE IR 5 MG TAB PO SCH ×3 (02:17→10:04)
--- NOTE | 2018-09-28 08:45 | SOAPPROG ---
SUGEY Progress Note Assessment/Plan: Assessment: LATE ENTRY: PT SEEN 09/27/2018 at 1800 3nd day post op Left Periacetabular Osteotomy Plan: X-ray cleared by Dr. Parker Transition to oral analgesia SCDs. 81mg aspirin daily for DVT prophylaxis Up with PT/OT D/C home tomorrow 09/25/18 13:56 09/26/18 16:18 09/28/18 08:42 Subjective: Jolie seen at 1800 on 09/27/2018 (LATE ENTRY) Jolie is doing well with pain management. She is mobile with crutches and has been up to the bathroom with assistance several times since Shaver was removed. She denies any nausea, cp or sob. She would like to go home tomorrow (09/28/18) Objective: Vital Signs Temp Pulse Resp BP Pulse Ox 37.0 C 73 18 104/57 L 91 L 09/28/18 07:24 09/28/18 07:24 09/28/18 07:24 09/28/18 07:24 09/28/18 07:24 Laboratory Results 09/25/18 04:27 09/25/18 04:27 09/27/18 09/28/18 09/29/18 05:59 05:59 05:59 Intake Total 2099 1000 Output Total 4150 450 Balance -2051 550 Well appearing in NAD Left hip: dressings clean dry intact some ecchymosis and edema some thigh numbness NVI distally full ROM of foot and ankle - Pending Discharge Pending Discharge Within 24 Hours: Yes Pending Discharge Date: 09/29/18 Pending Discharge Time: 11:00 ICD10 Worksheet Patient Problems: Problems Problem Status Onset Post-operative pain Acute - ICD10 Problem Qualifiers (1) Post-operative pain
[2018-09-28] MEDS: NAPROXEN SODIUM 220 MG TAB PO SCH (10:02)
[2018-09-28] MEDS: PANTOPRAZOLE SODIUM 40 MG TAB PO SCH (10:02)
[2018-09-28] MEDS: FLUoxetine 20 MG CAP PO SCH (10:03)
[2018-09-28] MEDS: DIAZEPAM 2 MG TAB PO PRN (10:03)
[2018-09-28] MEDS: ASPIRIN EC 81 MG TAB PO SCH (10:04)
[2018-09-28] MEDS: SENNOSIDES/DOCUSATE SODIUM TAB PO SCH (10:05)
[2018-09-28 11:12] VITALS: BP 99/65
[2018-09-28] MEDS: oxyCODONE IR 5 MG TAB PO PRN (12:40)
--- NOTE | 2018-09-28 15:09 | ASMTLACE ---
LACE Length of stay for Answers: 4-6 days current admission Acuity / Level of Answers: Yes Care: Did the patient have an inpatient admission? # of Emergency department Answers: 0 visits in the last 6 months Social determinants Answers: Mental health diagnosis (anxiety, depression, pers onality disorders, etc.) Score: 10 Date Signed: 09/28/2018 03:08 PM Electronically Signed By:ODESSA Vaughan
--- NOTE | 2018-09-28 15:10 | ASMTCMCOM ---
CM Note CM Note Notes: Pt medically stable for d/c, no CM d/c needs identified. Date Signed: 09/28/2018 03:09 PM Electronically Signed By:ODESSA Vaughan
== END 2018-09-28 12:59 | disposition home or self-care (01) | DRG 517 ==
LOC: FSGY 05:47 → F3N 12:59
PROVIDERS: ADMIT Orthopaedic Surgery Sports Medicine; ATTEND Orthopaedic Surgery Sports Medicine
PROC: 0QS504Z Reposition Left Acetabulum with Internal Fixation Device, Open Approach (ICD-10-PCS; principal; 2018-09-24 07:15)
DX: M25.852 Other specified joint disorders, left hip (principal); Q65.89 Other specified congenital deformities of hip; D64.9 Anemia, unspecified; M54.16 Radiculopathy, lumbar region; J45.909 Unspecified asthma, uncomplicated; Z87.891 Personal history of nicotine dependence
CPT/HCPCS: 97116-GP; 97161-GP; 97166-GO; 97530-GP; 97535-GO; C1713; J0690; J1100; J1170; J2001; J2250; J2274; J2370; J2405; J2550; J2704; J3010